=== PATIENT | female | born 2000 | race Caucasian/White ===

== ENCOUNTER 2019-11-27 12:24 | Outpatient (CLI) | payer MEDICAID, SELFPAY ==
[2019-11-27 12:36] VITALS: BP 135/79; PULSE 109; RESP 18
--- NOTE | 2019-11-27 12:47 | US_ITS ---
WS: [id number] ULTRASOUND OB LIMITED TECHNIQUE: Limited ultrasound examination of the fetus. CLINICAL INFORMATION: NO CARE, FINDINGS: Cervix measures 4.8 CM Single interuterine gestation. presentation is cephalic Placental location is posterior. Placenta grade: 2 heart rate 160 BPM. TAYLOR 10.7 cm Anatomy: BDP: 9.5 cm = 38w5d HC: 33.9 cm = 39w0d AC: 34.9 cm = 38w6d FEMUR LENGTH: 7.5 cm = 38w4d Estimated weight: 3591 g EGA by ultrasound: 38w6d JEREMIAH by ultrasound: 12/05/2019 Biophysical profile 8 out of 8. breathin movement: 2 tone: 2 Amniotic fluid: 2 IMPRESSION 1. Normal biophysical profile 8 out of 8 2. Estimated gestational age 38 weeks 6 days with estimated delivery December 05, 2019 3. Cervix measures 4.8 cm
[2019-11-27 13:40] VITALS: BP 135/79; PULSE 109; RESP 18
== END 2019-11-27 12:40 | disposition home or self-care (01) ==
LOC: OPOB 12:36 → OBGYN 13:42
PROVIDERS: Family Provider Family Medicine; PCP Family Medicine; Visit Provider Obstetrics & Gynecology
DX: O09.30 Supervision of pregnancy with insufficient antenatal care, unspecified trimester (principal); Z3A.00 Weeks of gestation of pregnancy not specified
CPT/HCPCS: 59025; 76815; 76819; 80053; 80307; 84315; 85027; 86592; 86762; 86803; 86850; 86900; 87081; 87340; 87491; 87591; 87661; 99211

== ENCOUNTER 2019-12-01 21:28 | Outpatient (CLI) | payer MEDICAID, SELFPAY ==
[2019-12-01] VITALS (10 sets, daily range): BP systolic 0–140; BP diastolic 0–81; PULSE 101–114; RESP 16; TEMP 36.9–37; BMI 38.9
== END 2019-12-01 22:55 | disposition home or self-care (01) ==
LOC: OPOB 21:30 → OBGYN 21:32
PROVIDERS: Family Provider Family Medicine; PCP Family Medicine; Visit Provider Obstetrics & Gynecology
DX: O26.899 Other specified pregnancy related conditions, unspecified trimester (principal); Z3A.00 Weeks of gestation of pregnancy not specified
CPT/HCPCS: 59025; 99211

== ENCOUNTER 2019-12-11 06:14 | Inpatient (IN) | payer MEDICAID, SELFPAY ==
[2019-12-11] VITALS (90 sets, daily range): BP systolic 0–221; BP diastolic 0–120; PULSE 67–141; RESP 12–18; TEMP 36.7–37.5; O2SAT 98–100; BMI 40.0
[2019-12-11] MEDS: promethazine 25 mg/mL SDV 1 mL IM (05:11)
--- NOTE | 2019-12-11 05:35 | PC.NURSE ---
at nurses station, rubi reviewed, updated on SVE and phenergan given for nausea at 0511.
[2019-12-11] MEDS: lactated ringers 1,000 ML 999 ML IV ×2 (06:45→08:29)
[2019-12-11 06:53] LABS: Basophils % 0.3 %; Hemoglobin 9.5 g/dL (11.5-15.3); Lymphocytes # 2.1 10^3/uL (1.5-6.5); Lymphocytes % 16.2 %; Mean Corpuscular HGB Conc 29.7 g/dL (30.0-36.0); Mean Corpuscular Hemoglobin 24.3 pg (28.0-34.0); Mean Corpuscular Volume 81.8 fL (81-99); Mean Platelet Volume 9.9 fL (7.4-10.4); Monocytes # 0.5 10^3/uL (0.2-0.9); Monocytes % 4.2 %; Neutrophils # 10.17 10^3/uL (1.8-8.0); Neutrophils % 78.5 %; Nucleated Red Blood Cells % 0 %; Platelet Count 292 10^3/cmm (130-400); Red Blood Count 3.91 10^6/uL (4.1-5.3); Red Cell Distribution Width 20.1 % (12.1-15.1); White Blood Count 12.9 10^3/uL (4.5-13.0)
[2019-12-11] MEDS: ondansetron 2 mg/ML SDV 2 mL 4 MG IVP (07:10)
[2019-12-11] MEDS: dextrose 5%-lactated ringers 1,000 ML 125 ML IV ×2 (08:30→14:24)
[2019-12-11] MEDS: oxytocin 30 UNIT/500 ML BAG 600 UNIT IV (08:31)
--- NOTE | 2019-12-11 09:17 | ANES.PREANE2 ---
Pre-Anesthetic Assessment Pre-Anesthetic Assessment: Height/Weight: Height 1.6 m Weight 102.512 kg Temp Pulse Resp BP Pulse Ox 98.6 F 126 H 18 100/53 99 12/11/19 08:30 12/11/19 09:15 12/11/19 07:30 12/11/19 09:15 12/11/19 08:23 Was Beta Sd taken within 24 hours: N/A Social: Social History: No alcohol and No tobacco Exam: Pre-Anes Outpt Exam: alert and oriented x 3 History/ROS: No significant complaints Pulmonary: Pulmonary: None reported CV/HEM: CV/HEM: None reported : : None reported Hepatic: Hepatic: None reported GI: GI: None reported Metabolic: Metabolic: None reported Musc/skel: Musc/skel: None reported Neuropsych: Neuropsych: None reported Anesthetic Plan: ASA status: 2 Anesthesia: Regional (specify below) Other: Labor Epidural Meds/Allergies Current Medications: Current Medications Generic Name Dose Route Start Last Admin Trade Name Freq PRN Reason Stop Dose Admin Dextrose/Lactated Ringer's 1,000 mls @ 125 m ls/hr 12/11/19 06:11 12/11/19 08:30 Dextrose 5%-Lact ated Ringers IV 125 mls/hr .Q8H PRN Administration LABOR INDUCTION Oxytocin 30 unit in 500 ml s @ 600 mls/hr 12/11/19 06:11 12/11/19 08:31 Pitocin IV 600 mls/hr .Q50M PRN 600 mls/hr After delivery of Administration Protocol Ropivacaine 200 mg in 100 mls @ 13 mls/hr 12/11/19 06:13 12/11/19 08:30 Naropin Premix EPIDURAL 13 mls/hr .Q7H42M PRN Administration ANESTHESIA Ondansetron HCl 4 mg 12/11/19 06:11 12/11/19 07:10 Zofran IVP 4 mg Q4H PRN Administration NAUSEA AND VOMITI NG PFSH Anesthesia PFSH: Medical History (Updated 12/07/19 @ 19:17 by Jose Aguilar MD) No pertinent past medical history neg hx:htn,dm,thyroid,dvt/pe Obesity Surgical History History of tonsillectomy and adenoidectomy (~2013) Family History Mother Hypertension Diabetes Family/Other Diabetes Paternal aunt Heart disease Paternal great uncle Family history of thyroid problem Maternal aunt Social History Additional social history: - Tobacco use: former smoker; Smoked for approx 1 year at age 14. Alcohol use: Denies Drug use: Denies Female Reproductive History: : 2 Data Anesthesia CBC & Chem 7: 12/11/19 06:20 Other Labs: Laboratory Results - last 48 hr 12/11/19 06:20 WBC 12.9 RBC 3.91 L Hgb 9.5 L Hct 32.0 L MCV 81.8 MCH 24.3 L MCHC 29.7 L RDW 20.1 H Plt Count 292 MPV 9.9 Neut % (Auto) 78.5 Lymph % (Auto) 16.2 [place] % (Auto) 4.2 Eos % (Auto) 0.0 Baso % (Auto) 0.3 Neut # (Auto) 10.17 H Lymph # (Auto) 2.1 [place] # (Auto) 0.5 Eos # (Auto) 0.0 Baso # (Auto) 0.0 Nucleated RBC % (auto) 0 Nucleated RBCs # 0.0 Cardiac Studies: No Data to Display
--- NOTE | 2019-12-11 09:18 | ANES.PREANE2 ---
Pre-Anesthetic Assessment Pre-Anesthetic Assessment: Height/Weight: Height 1.6 m Weight 102.512 kg Temp Pulse Resp BP Pulse Ox 98.6 F 126 H 18 100/53 99 12/11/19 08:30 12/11/19 09:15 12/11/19 07:30 12/11/19 09:15 12/11/19 08:23 Meds/Allergies Current Medications: Current Medications Generic Name Dose Route Start Last Admin Trade Name Freq PRN Reason Stop Dose Admin Dextrose/Lactated Ringer's 1,000 mls @ 125 m ls/hr 12/11/19 06:11 12/11/19 08:30 Dextrose 5%-Lact ated Ringers IV 125 mls/hr .Q8H PRN Administration LABOR INDUCTION Oxytocin 30 unit in 500 ml s @ 600 mls/hr 12/11/19 06:11 12/11/19 08:31 Pitocin IV 600 mls/hr .Q50M PRN 600 mls/hr After delivery of Administration Protocol Ropivacaine 200 mg in 100 mls @ 13 mls/hr 12/11/19 06:13 12/11/19 08:30 Naropin Premix EPIDURAL 13 mls/hr .Q7H42M PRN Administration ANESTHESIA Ondansetron HCl 4 mg 12/11/19 06:11 12/11/19 07:10 Zofran IVP 4 mg Q4H PRN Administration NAUSEA AND VOMITI NG PFSH Anesthesia PFSH: Medical History (Updated 12/07/19 @ 19:17 by Jose Aguilar MD) No pertinent past medical history neg hx:htn,dm,thyroid,dvt/pe Obesity Surgical History History of tonsillectomy and adenoidectomy (~2013) Family History Mother Hypertension Diabetes Family/Other Diabetes Paternal aunt Heart disease Paternal great uncle Family history of thyroid problem Maternal aunt Social History Additional social history: - Tobacco use: former smoker; Smoked for approx 1 year at age 14. Alcohol use: Denies Drug use: Denies Female Reproductive History: : 2 Data Anesthesia CBC & Chem 7: 12/11/19 06:20 Other Labs: Laboratory Results - last 48 hr 12/11/19 06:20 WBC 12.9 RBC 3.91 L Hgb 9.5 L Hct 32.0 L MCV 81.8 MCH 24.3 L MCHC 29.7 L RDW 20.1 H Plt Count 292 MPV 9.9 Neut % (Auto) 78.5 Lymph % (Auto) 16.2 [place] % (Auto) 4.2 Eos % (Auto) 0.0 Baso % (Auto) 0.3 Neut # (Auto) 10.17 H Lymph # (Auto) 2.1 [place] # (Auto) 0.5 Eos # (Auto) 0.0 Baso # (Auto) 0.0 Nucleated RBC % (auto) 0 Nucleated RBCs # 0.0 Cardiac Studies: No Data to Display Anesthesia Procedures Epidural: Time Out Performed: Yes Consents Signed: Procedure Consent Consent: requested by attending/covering physician, risks and benefits reviewed and patient agrees to proceed Lumbar Level: L4-L5 Epidural position: sitting Epidural procedure: sterile prep of area, 1% lidocaine to numb the area, negative for paresthesia passed, neg for paresthesia, 1.5% xylocaine 1:200k epi, no systemic response, sterile dressing applied and 0.2% Ropiavacaine @ mls/hr
--- NOTE | 2019-12-11 09:21 | P.ANESASSM_ITS ---
Pre-Anesthetic Assessment Pre-Anesthetic Assessment: Height/Weight: Height 1.6 m Weight 102.512 kg Temp Pulse Resp BP Pulse Ox 98.6 F 126 H 18 100/53 99 12/11/19 08:30 12/11/19 09:15 12/11/19 07:30 12/11/19 09:15 12/11/19 08:23 Meds/Allergies Current Medications: Current Medications Generic Name Dose Route Start Last Admin Trade Name Freq PRN Reason Stop Dose Admin Dextrose/Lactated Ringer's 1,000 mls @ 125 m ls/hr 12/11/19 06:11 12/11/19 08:30 Dextrose 5%-Lact ated Ringers IV 125 mls/hr .Q8H PRN Administration LABOR INDUCTION Oxytocin 30 unit in 500 ml s @ 600 mls/hr 12/11/19 06:11 12/11/19 08:31 Pitocin IV 600 mls/hr .Q50M PRN 600 mls/hr After delivery of Administration Protocol Ropivacaine 200 mg in 100 mls @ 13 mls/hr 12/11/19 06:13 12/11/19 08:30 Naropin Premix EPIDURAL 13 mls/hr .Q7H42M PRN Administration ANESTHESIA Ondansetron HCl 4 mg 12/11/19 06:11 12/11/19 07:10 Zofran IVP 4 mg Q4H PRN Administration NAUSEA AND VOMITI NG PFSH Anesthesia PFSH: Medical History (Updated 12/07/19 @ 19:17 by Jose Aguilar MD) No pertinent past medical history neg hx:htn,dm,thyroid,dvt/pe Obesity Surgical History History of tonsillectomy and adenoidectomy (~2013) Family History Mother Hypertension Diabetes Family/Other Diabetes Paternal aunt Heart disease Paternal great uncle Family history of thyroid problem Maternal aunt Social History Additional social history: - Tobacco use: former smoker; Smoked for approx 1 year at age 14. Alcohol use: Denies Drug use: Denies Female Reproductive History: : 2 Data Anesthesia CBC & Chem 7: 12/11/19 06:20 Other Labs: Laboratory Results - last 48 hr 12/11/19 06:20 WBC 12.9 RBC 3.91 L Hgb 9.5 L Hct 32.0 L MCV 81.8 MCH 24.3 L MCHC 29.7 L RDW 20.1 H Plt Count 292 MPV 9.9 Neut % (Auto) 78.5 Lymph % (Auto) 16.2 [place] % (Auto) 4.2 Eos % (Auto) 0.0 Baso % (Auto) 0.3 Neut # (Auto) 10.17 H Lymph # (Auto) 2.1 [place] # (Auto) 0.5 Eos # (Auto) 0.0 Baso # (Auto) 0.0 Nucleated RBC % (auto) 0 Nucleated RBCs # 0.0 Cardiac Studies: No Data to Display
--- NOTE | 2019-12-11 09:22 | ANES.PROC ---
Anesthesia Procedures Procedure/Date: 12/11/19 Epidural: Time Out Performed: Yes Consents Signed: Procedure Consent Consent: requested by attending/covering physician, risks and benefits reviewed and patient agrees to proceed Lumbar Level: L4-L5 Epidural position: sitting Epidural procedure: sterile prep of area, 1% lidocaine to numb the area, negative for paresthesia passed, 1.5% xylocaine 1:200k epi and sterile dressing applied Additional Comments: Room Time: 08:00AM, Test Dose: 08:11AM
--- NOTE | 2019-12-11 14:10 | PC.NURSE ---
1300 FHTS DOWN IN 90-100, PT PUSHING, O2 PLACED ON AT 10 L AND THIS TECHNICAL WRITING LEAD/MGR FELT LIKE BABY IS OP, ASKED DR. GORDON IF HE COULD COME ASSESS SITUATION. 1303 DR. GORDON IN ROOM AND VE DONE 1308 DR. GORDON ATTEMPTED TO MANUALLY ROTATE BABY, PT'S CONTRACTIONS NOT VERY STRONG OR OFTEN. 1315 BABY REMAINS OP AND HIGH SO WE PUSHED A COUPLE TIMES AND THEN I ASKED MACARENA TO ASK DR. GORDON IF WE COULD START PITOCIN AND LET HER LABOR DOWN FOR AWHILE. 1320 DR. GORDON CAME BACK INTO ROOM AND ORDERS RECEIVED TO START PITOCIN AND LET HER LABOR DOWN FOR AWHILE. 1323 PITOCIN STARTED AT 4MLS AND BED BACK TOGETHER AND PEANUT BALL PLACED AND PT TILED TO RIGHT SIDE. 1340 CONTRACTION TOCO CHANGED OUT, WAS NOT GRAPHING CONTRACTIONS WELL AT ALL.
--- NOTE | 2019-12-11 15:52 | PM.DELIVERY ---
Delivery Note: Date of delivery: December 11, 2019 Pre-delivery diagnoses: 1. at 40-6/7 weeks gestation. 2. Limited care, starting at 38 weeks 3. Anemia in in third trimester Post-delivery diagnoses: 1. Term at 40-6/7 weeks gestation - delivered. 2. Limited care - delivered 3. Anemia and - delivered 4. Viable male infant Procedure: Spontaneous vaginal delivery Op report anesthesia: Epidural Delivering Physician: Dr. Jose Aguilar Estimated blood loss (mL): 150 Pre-Delivery Course: Patient is a 19-year-old white female, 2, para 1-0-0-1 with an unknown LMP and an EDC of 12/05/2019 based on a 38-week ultrasound, which places her at 40-6/7 weeks gestation at admission. She presented to labor and delivery at 02:49 on 12/11/2019 with a complaint of contractions. On initial evaluation she was 4 to 5 cm dilated and 80% effaced. She was watched over the next couple hours and made cervical change. As a result she was admitted to the hospital. She became more uncomfortable and had epidural placed early this morning. She had artificial rupture of membranes at 09:55 with clear fluid present. She was 90% effaced and 8 cm dilated and shrunk to 80% effaced and 7 cm dilation after rupture. She continued to progress and was found to be completely dilated by 12:50. Pushing was started, but she was too numb to push adequately and contractions were very weak. As a result, Pitocin was started and epidural was turned down. Delivery: At 14:45 she started pushing and delivered at 15:20 as a spontaneous vaginal delivery of a left occiput anterior presentation male infant over intact perineum under epidural anesthesia. Following delivery of the infant's head, one loop of nuchal cord was noted. The baby delivered through the loop of cord with the right shoulder anterior. Baby was placed on the mother's abdomen. Cord was clamped and then cut by the father the baby. The baby was left in the care of the waiting nurses. Baby's was spontaneously crying. Cord blood was obtained. Pitocin bolus was started. Placenta delivered intact by simple expression at 15:23. The cervix and vagina were palpated and noted to be intact. The labia were inspected and noted to be intact except for a second-degree midline perineal laceration. This was repaired with 3-0 Vicryl suture. FINDINGS 1. Viable male weighing 8 lbs 12 oz (3975 g) with a length of 20-1/2 inches and Apgars of 8 at 1 minute and 9 at 5 minutes. 2. Three-vessel cord with one loop of nuchal cord noted. 3. Normal-appearing placenta with an eccentric cord insertion. Post-Delivery Status: Mother and infant were left to recover in satisfactory condition. A&P Assessment and plan (1) Term delivered: Status: Acute (2) Anemia during , delivered, current hospitalization: Status: Acute Coding Level of Care Code Acute Veneer Taper for Chg Fwd Diagnoses Term delivered O80 Anemia during , delivered, current hospitalization O99.02
--- NOTE | 2019-12-11 17:20 | PC.NURSE ---
Pts. room is extremely hot and air is not working well. Pt. denies any body aches.
--- NOTE | 2019-12-11 17:24 | PC.NURSE ---
HOTLINE CALL MADE DUE TO LACK OF CARE ONLY SAW DR. GORDON ONCE ON NOVEMBER 28 2019 FROM WHAT I UNDERSTAND. BOTH PARENTS ARE VERY ATTENTIVE AND APPROPRIATE.
--- NOTE | 2019-12-11 18:22 | PC.PHAR ---
THIS PETROPHYSICIST WAS NOT ABLE TO PUT IN INCREASES OF PITOCIN AUGMENTATION INFUSION PRIOR TO DR. GORDON DISCONTINUING IT. HERBIE MOSCOSO RN WITNESSED THIS PETROPHYSICIST INCREASING MEDICATION WE WERE PUSHING WITH PT PER DR. GORDON'S ORDERS. 1415 INCREASES TO 8MLS 1430 INCREASED TO 10MLS 1445 INCREASED TO 12 MLS 1500 INCREASED TO 14 MLS 1514 INCREASED TO 16 MLS.
--- NOTE | 2019-12-11 20:31 | PC.NURSE ---
Patient ambulated from L&D room to PP room; tolerates activity well. SKYLER FERRO
[2019-12-12 05:10] VITALS: BP 124/85; PULSE 97; RESP 16; TEMP 36.6
[2019-12-12 06:11] LABS: Hematocrit 28.3 % (37.0-47.0); Hemoglobin 8.5 g/dL (11.5-15.3); Mean Corpuscular Volume 83.2 fL (81-99); Platelet Count 239 10^3/cmm (130-400); Red Cell Distribution Width 20.1 % (12.1-15.1); White Blood Count 15.4 10^3/uL (4.5-13.0)
[2019-12-12] MEDS: prenatal vitamin Capsule 1 CAP PO (08:19)
[2019-12-12] MEDS: docusate sodium 100 mg Capsule PO (08:19)
[2019-12-12 10:15] VITALS: BP 123/77; PULSE 84; RESP 18; TEMP 36.5; O2SAT 99
--- NOTE | 2019-12-12 13:19 | PM.OBGYDC ---
Discharge Providers TRAVEL ADMINISTRATOR Date of Admission: 12/11/19 06:14 Date of Discharge: 12/12/19 Attending Provider at Admission: Jose Aguilar MD Attending Provider at Discharge: Jose Aguilar MD Primary Care Provider: Juan Barajas DO Diagnoses at Discharge Discharge Diagnosis (1) Term delivered: Status: Acute (2) Anemia during , delivered, current hospitalization: Status: Acute Reason for Visit Reason for Visit: contractions Information Peripartum Data: Infant Delivery Method: Vaginal Physical Exam Const: COMMON NORMALS: no acute distress, average body habitus, alert and well nourished GENERAL APPEARANCE: well developed ORIENTATION/CONSCIOUSNESS: Yes oriented to person, Yes oriented to place and Yes oriented to time Resp: COMMON NORMALS: normal respiratory effort and clear to auscultation bilaterally AUSCULTATION: clear to auscultation bilaterally Cardio: COMMON NORMALS: regular rate, regular rhythm, No gallops present (Cardio) and No rub (Cardio) RATE: regular rate RHYTHM: regular rhythm GI: COMMON NORMALS: Soft to palpation, non-tender, No hepatosplenomegaly present and no masses (Except for nontender uterus, approximately 2 fingerbreadths below the umbilicus.) AUSCULTATION: Yes normoactive bowel sounds PALPATION: Yes Soft to palpation, Yes No hepatosplenomegaly present and No Hernia present : EXTERNAL FEMALE EXAM: No Hernia present Extremity: COMMON NORMALS: no calf tenderness GENERAL: Yes edema (Trace to 1+ lower extremity edema) Neuro: SENSORIUM/ORIENTATION: Yes alert, Yes oriented to person, Yes oriented to place and Yes oriented to time Psych: COMMON NORMALS: normal affect MOOD & AFFECT: Yes euthymic mood Discharge Data Data Completed and Pending: Labs from last 24 hours 12/12/19 06:00 WBC 15.4 H RBC 3.40 L Hgb 8.5 L Hct 28.3 L MCV 83.2 MCH 25.0 L MCHC 30.0 RDW 20.1 H Plt Count 239 MPV 10.0 Vitals: Last Vital Signs Temp 97.7 F 12/12/19 10:15 Pulse 84 12/12/19 10:15 Resp 18 12/12/19 10:15 BP 123/77 12/12/19 10:15 Pulse Ox 99 12/12/19 10:15 Discharge Plan Discharge Patient Disposition: Home, Self-Care Condition: Stable Prescriptions: Continued prenat.vits,pako,eyq-elus-celak Tablet 1 tab PO DAILY RF: 0 Changed ferrous sulfate 325 mg (65 mg iron) tablet,delayed release (DR/EC) 325 mg PO BID Qty: 0 RF: 0 Discharge Orders: Discharge Order (Routine); Ordered 12/12/19 Ordered By: Jose Aguilar Referrals: Jose Aguilar MD [Physician] - 01/23/20 10:00 am (Your 6 week appointment has been scheduled for 01/23/20 at 10:[address] [facility]ilar at [facility] Discharge Diet: Regular Discharge Activity: Resume usual activity Patient Instructions: Vitamins (By mouth), OB Discharge Report, OB Food/Drug Interaction Guide, OB Proud Parent Packet, OB Vaginal Deliveries Discharge Attestations TRAVEL ADMINISTRATOR Time Spent in Discharge Care*: less than 30 min Coding Level of Care Code Acute Chemical Etch Operator for Chg Fwd Diagnoses Term delivered O80 Anemia during , delivered, current hospitalization O99.02
[2019-12-12 16:37] VITALS: BP 123/82; PULSE 74; RESP 16; TEMP 36.6; O2SAT 100
[2019-12-12] MEDS: measles,mumps,rubella pf Vial (w/diluent) 0.5 ML SUBCUT (18:20)
[2019-12-12 18:26] VITALS: BP 115/77; PULSE 78; RESP 16; TEMP 36.7; O2SAT 99
== END 2019-12-12 18:42 | disposition home or self-care (01) | DRG 807 ==
LOC: OBGYN 08:52 → OPOB 08:52
PROVIDERS: Admitting Provider Obstetrics & Gynecology; Family Provider Family Medicine; PCP Family Medicine; Visit Provider Obstetrics & Gynecology
DX: O99.02 Anemia complicating childbirth (principal); Z37.0 Single live birth; Z3A.40 40 weeks gestation of pregnancy; O70.1 Second degree perineal laceration during delivery; D64.9 Anemia, unspecified; O69.81X0 Labor and delivery complicated by cord around neck, without compression, not applicable or unspecified
CPT/HCPCS: 12345; 36415; 51702; 59025; 59409; 85025; 85027; 90707; 96372; 96375; 99211; J2405; J2550; J2795

== ENCOUNTER 2020-02-23 22:42 | Observation (INO) | payer MEDICAID, SELFPAY ==
[2020-02-23 23:00] VITALS: BP 123/80; PULSE 100; RESP 16; TEMP 36.7; O2SAT 100; BMI 37.8
--- NOTE | 2020-02-23 23:20 | XR_ITS ---
WS: [id number] PORTABLE CHEST HISTORY: Chest pain COMPARISON: 03/19/2006 Focal area of increased soft tissue centered over the LEFT hilum extending into the LEFT upper lobe. No pleural effusion or pneumothorax. Cardiac size: Normal. Mediastinum/Aorta: No mediastinal widening other than the LEFT hilar mass. No osseous abnormality seen. XR/XR chest 1V portable [id number] IMPRESSION: LEFT hilar/LEFT upper lobe opacification suspicious for mass. Please see CT ang iogram report performed on the same day.
--- NOTE | 2020-02-23 23:20 | ECG_ITS ---
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 Measurements Intervals [place] Rate: 94 P: 39 NC: 202 QRS: 65 QRSD: 89 T: 40 QT: 348 QTc: 437 Interpretive Statements SINUS RHYTHM NONSPECIFIC T-WAVE ABNORMALITY No previous ECG available for comparison Electronically Signed On 02-24-2020 17:56:51 CDT by Blake Clemons M.D. [email or web address]
--- NOTE | 2020-02-23 23:29 | ED_ITS ---
Documented by User: MARY Dang 02/24/20 03:08 HPI - Extremity Problem General: Chief complaint: Extremity Injury, Upper Stated complaint: chest pains/ has chf Time Seen by Provider: 02/23/20 23:29 History of Present Illness: HPI Narrative: Patient is a 19-year-old female comes to the ED with chest pain. Patient is and delivered a baby back on December 10. Patient says that yesterday and having pain from her left benjamin ulder blade that moved to her armpit and then into left side of chest. Chest pain started when patient was sitting and at rest. She denies any past episodes of chest pain and denies any cardiac problems as a child. She currently rates her chest pain 5 out of 10. Patient says pain gets worse when she takes a deep breath. She has not taken any medications before coming to ED to help with chest pain. Denies fever, chills, shortness of breath, nausea/vomiting, abdominal pain, bladder or bowel symptoms. Associated symptoms: Reports chest pain; Deny fever(s) or rash Review of Systems Const: Denies: fever(s), chills or fatigue Eyes: Denies: change in vision or eye discomfort ENMT: Denies: throat pain, odynophagia, nasal discharge or nasal congestion Card: Reports: chest pain; Denies: palpitations, edema, swelling of feet/ankles, dyspnea on exertion or orthopnea Resp: Denies: dyspnea, productive cough or non-productive cough GI: Denies: abdominal pain, nausea, vomiting, diarrhea, constipation or hematochezia : Denies: flank pain, dysuria or hematuria Musc: Reports: back pain (Pain in left shoulder blade and has since migrated to left side of chest.); Denies: neck pain or extremity swelling Skin/Breast: Denies: rash or new lesions Neuro: Denies: headache(s), numbness in extremities or weakness in extremities [facility] PFSH: Medical History Blood type B- Obesity Surgical History History of tonsillectomy and adenoidectomy (~2013) Family History Mother Hypertension Diabetes Family/Other Diabetes Paternal aunt Heart disease Paternal great uncle Family history of thyroid problem Maternal aunt Social History Smoking and tobacco status: former smoker Quit status (tobacco): has quit using tobacco Year quit tobacco: 2016 Former quit date comment: Smoked for 1 year at age 14 Alcohol intake: never Additional social history: - Tobacco use: former smoker; Smoked for approx 1 year at age 14. Alcohol use: Denies Drug use: Denies Physical Exam Const: COMMON NORMALS: no acute distress, patient oriented x3 and alert GENERAL APPEARANCE: cooperative and comfortable HENMT: COMMON NORMALS: normocephalic HEAD & SCALP: normocephalic MOUTH: Normal oral and palatal mucosa present THROAT: posterior oropharynx normal and uvula midline Neck/C-Spine: COMMON NORMALS: supple GENERAL: Yes normal visual inspection Chest: COMMONS NORMALS: normal palpation of entire chest wall Resp: COMMON NORMALS: normal respiratory effort, No retractions, No use of accessory muscles and clear to auscultation bilaterally AUSCULTATION: clear to auscultation bilaterally Cardio: COMMON NORMALS: regular rate, regular rhythm, S1 normal heart sound present, S2 normal heart sound present, No gallops present (Cardio), No clicks present (Cardio), No murmurs present (Cardio) and Peripheral pulses 2+ throughout RATE: regular rate RHYTHM: regular rhythm HEART SOUNDS: S1 normal heart sound present and S2 normal heart sound present PERIPHERAL PULSES: Peripheral pulses 2+ throughout GI: COMMON NORMALS: Normal to inspection, nondistended, normoactive bowel sounds present, Soft to palpation, non-tender and no masses PALPATION: Yes Soft to palpation : COMMON NORMALS: Yes no CVA tenderness BLADDER/KIDNEY EXAM: Yes no CVA tenderness Back/Pelvis: COMMON NORMALS: no CVA tenderness Extremity: COMMON NORMALS: normal to inspection and no pedal edema Neuro: COMMON NORMALS: patient oriented x3 and moves all extremities SENSORIUM/ORIENTATION: Yes alert Skin: GENERAL SKIN EXAM: dry skin Course Vital Signs: Vital signs: Vital Signs Temperature 98.0 F 02/23/20 23:00 Pulse Rate 110 H 02/24/20 02:16 Respiratory Rate 20 H 02/24/20 02:16 Blood Pressure 110/70 02/24/20 02:16 Pulse Oximetry 100 02/24/20 02:16 MDM - Extremity (Nontraumatic) Lab Data: Attestation: I reviewed the patient's lab results. Labs: Lab Results 02/24/20 02/24/20 02/24/20 Range/Units 00:03 00:03 00:03 WBC (4.5-13.0) 10^3/ uL RBC (4.1-5.3) 10^6/u L Hgb (11.5-15.3) g/dL Hct (37.0-47.0) % MCV (81-99) fL MCH (28.0-34.0) pg MCHC (30.0-36.0) g/dL RDW (12.1-15.1) % Plt Count (130-400) 10^3/c mm MPV (7.4-10.4) fL Neut % (Auto) % Lymph % (Auto) % [place] % (Auto) % Eos % (Auto) % Baso % (Auto) % Neut # (Auto) (1.8-8.0) 10^3/u L Lymph # (Auto) (1.5-6.5) 10^3/u L [place] # (Auto) (0.2-0.9) 10^3/u L Eos # (Auto) (0.0-0.8) 10^3/u L Baso # (Auto) (0.0-0.1) 10^3/u L Nucleated RBC % (a uto) % Nucleated RBCs # /100WBC D-Dimer 2.02 H (0-0.59) ug/mIFE U Sodium 141 (136-145) mmol/L Potassium 4.2 (3.5-5.1) mmol/L Chloride 107 (98-107) mmol/L Carbon Dioxide 24 (22-29) mmol/L Anion Gap 14.2 (5-19) BUN 14 (6-20) mg/dL Creatinine 0.7 (0.5-0.9) mg/dL GFR Calculation 106.7 (90-130) mL/min Glucose 87 (65-115) mg/dL Calculated Osmolal ity 292 (285-295) mOsm/k g Calcium 10.0 (8.5-10.5) mg/dL Total Bilirubin 0.2 (0.15-1.2) mg/dL AST 18 (0-32) U/L ALT 18 (0-33) U/L Alkaline Phosphata se 84 (35-105) IU/L Creatine Kinase 60 (26-192) U/L Troponin T Baselin e 6 (0-10) ng/L Troponin T 120 Min emre (0-10) ng/L Delta Troponin T (0-10) ABS# NT-Pro-B Natriuret Pep 26 (0-125) pg/mL Total Protein 6.9 (6.6-8.7) g/dL Albumin 4.4 (3.5-5.2) g/dL Globulin 2.5 (1.3-4.6) g/dL 02/24/20 02/24/20 Range/Units 00:03 02:23 WBC 8.7 (4.5-13.0) 10^3/ uL RBC 4.59 (4.1-5.3) 10^6/u L Hgb 11.8 (11.5-15.3) g/dL Hct 39.2 (37.0-47.0) % MCV 85.4 (81-99) fL MCH 25.7 L (28.0-34.0) pg MCHC 30.1 (30.0-36.0) g/dL RDW 14.6 (12.1-15.1) % Plt Count 420 H (130-400) 10^3/c mm MPV 10.2 (7.4-10.4) fL Neut % (Auto) 57.8 % Lymph % (Auto) 34.8 % [place] % (Auto) 5.8 % Eos % (Auto) 0.7 % Baso % (Auto) 0.7 % Neut # (Auto) 5.03 (1.8-8.0) 10^3/u L Lymph # (Auto) 3.0 (1.5-6.5) 10^3/u L [place] # (Auto) 0.5 (0.2-0.9) 10^3/u L Eos # (Auto) 0.1 (0.0-0.8) 10^3/u L Baso # (Auto) 0.1 (0.0-0.1) 10^3/u L Nucleated RBC % (a uto) 0 % Nucleated RBCs # 0.0 /100WBC D-Dimer (0-0.59) ug/mIFE U Sodium (136-145) mmol/L Potassium (3.5-5.1) mmol/L Chloride (98-107) mmol/L Carbon Dioxide (22-29) mmol/L Anion Gap (5-19) BUN (6-20) mg/dL Creatinine (0.5-0.9) mg/dL GFR Calculation (90-130) mL/min Glucose (65-115) mg/dL Calculated Osmolal ity (285-295) mOsm/k g Calcium (8.5-10.5) mg/dL Total Bilirubin (0.15-1.2) mg/dL AST (0-32) U/L ALT (0-33) U/L Alkaline Phosphata se (35-105) IU/L Creatine Kinase (26-192) U/L Troponin T Baselin e (0-10) ng/L Troponin T 120 Min emre 6.00 (0-10) ng/L Delta Troponin T 0 (0-10) ABS# NT-Pro-B Natriuret Pep (0-125) pg/mL Total Protein (6.6-8.7) g/dL Albumin (3.5-5.2) g/dL Globulin (1.3-4.6) g/dL Imaging Data^: CT Chest: Attestation: I personally reviewed and interpreted this imaging study as follows: Radiologist's impression: [address] [address] [address] Scan Report Signed with Addenda Patient: Shanna Pearce Unit #: [id number] : 2000 Age/Sex: 19 / F ADM Date: 02/23/20 Loc: ER Room/Bed: Attending Dr: Ordering Provider/Ordering MD: Javi Figueroa Date of Service: 02/24/20 Procedure(s): CT angio chest PE protcl [id number] Accession Number(s): [id number] Report Number: [id number]/CT angio chest PE prot [id number] THIS REPORT CONTAINS FINDINGS THAT MAY BE CRITICAL TO PATIENT CARE. The findings were verbally communicated via telephone conference with Dr. Eason at 2:34 AM CDT on 02/24/2020. The findings were acknowledged and understood. Radiation Dose CTDIVOL = (mGy): DLP = 1224.23 (mGy-cm) Addendum Dictated By: Eduard Vital MD Addendum Signed By: Eduard Vital MD Signed Date/Time: 0236 Addendum Cosigned By: PROCEDURE INFORMATION: Exam: CT Angiography Chest With Contrast Exam date and time: 02/24/2020 1:30 AM Age: 19 years old Clinical indication: Abnormal findings; Abnormal diagnostic tests; Elevated d-dimer; Additional info: Cp with elevated d dimer TECHNIQUE: Imaging protocol: Computed tomographic angiography of the chest with intravenous contrast. 3D rendering (Not supervised by radiologist): MIP and/or 3D reconstructed images were created by the technologist. Radiation optimization: All CT scans at this facility use at least one of these dose optimization techniques: automated exposure control; mA and/or kV adjustment per patient size (includes targeted exams where dose is matched to clinical indication); or iterative reconstruction. Contrast material: OMNI 350; Contrast volume: 95 ml; Contrast route: INTRAVENOUS (IV); COMPARISON: CR XR chest 1V portable [id number] 02/24/2020 12:00 AM RADIATION DOSE METRICS: Total DLP (mGy-cm): 1224.23 FINDINGS: Pulmonary arteries: The pulmonary arteries are adequately opacified for evaluation to the subsegmental level. There is no filling defect to suggest embolism. Aorta: The thoracic aorta is normal. There is no aneurysm or dissection. Lungs: There is an irregular 17 x 14 mm subpleural nodule in the lingula. There is ill-defined ground-glass opacity in the left upper lobe adjacent to the hilum. The right lung is clear. Pleural space: Unremarkable. No pneumothorax. No pleural effusion. Heart: The heart is unremarkable. There is no pericardial effusion. Lymph nodes: There is a left hilar mass encasing the bronchi and narrowing the anterior segmental left upper lobe pulmonary artery. The mass measures 4.5 x 3.2 cm axial dimension and 4.2 cm craniocaudal dimension. There is no mediastinal or hilar lymphadenopathy on the right. Adrenals: The adrenal glands are normal. Kidneys and ureters: There is mild right hydronephrosis, incompletely imaged. Bones/joints: Bones are unremarkable. Soft tissues: The extrathoracic soft tissues are unremarkable. CT/CT angio chest PE protcl [id number] IMPRESSION: 1. No pulmonary embolism. 2. 4.5 cm left hilar mass and 17 mm lingular pulmonary nodule. Findings are suspicious for malignant neoplasm. Differential diagnosis includes fungal infection. Highly suspicious nodule(s). Consider PET/CT, or tissue sampling.(Reference: Javier) 3. Right hydronephrosis. Consider further evaluation with renal ultrasound or abdomen CT. REFERENCES: Javier Hilario, et al. Guidelines for Management of Incidental Pulmonary Nodules Detected on CT Images: From the Fleischner Society 2017. Radiology. 2017;284(1):228-243. Radiation Dose CTDIVOL = (mGy): DLP = 1224.23 (mGy-cm) Dictated By: Eduard Vital MD Signed By: Eduard Vital MD Signed Date/Time: 02/24/20234 DD/ 3 EKG Data^: EKG 1: Attestation: I personally reviewed and interpreted this EKG as follows: EKG interpretation date: 02/24/20 Interpretation: Sinus rhythm, 94 bpm, no ST segment elevation or depression seen. Patient has an S wave in lead I, Q wave in lead III and T wave is flattened in lead III as well. Discharge Plan Discharge Prescriptions: No Action prenat.vits,pako,[id number] Tablet 1 tab PO DAILY RF: 0 ferrous sulfate 325 mg (65 mg iron) tablet,delayed release (DR/EC) 325 mg PO BID Qty: 0 RF: 0 Coding Level of Care Code ED Squeak Rattle And Leak Repairer for Chg Fwd Exam Comprehensive Documented by User: Victor Hugo Eason DO 02/24/20 03:22 HPI - Extremity Problem General: Chief complaint: Extremity Injury, Upper Stated complaint: chest pains/ has chf Time Seen by Provider: 02/23/20 23:29 PFSH ED PFSH: Medical History Blood type B- Obesity Surgical History History of tonsillectomy and adenoidectomy (~2013) Family History Mother Hypertension Diabetes Family/Other Diabetes Paternal aunt Heart disease Paternal great uncle Family history of thyroid problem Maternal aunt Social History Smoking and tobacco status: former smoker Quit status (tobacco): has quit using tobacco Year quit tobacco: 2015 Former quit date comment: Smoked for 1 year at age 14 Alcohol intake: never Additional social history: - Tobacco use: former smoker; Smoked for approx 1 year at age 14. Alcohol use: Denies Drug use: Denies Course Consultations: Consultation #1: [email or web address] Vital Signs: Vital signs: Vital Signs Temperature 98.0 F 02/23/20 23:00 Pulse Rate 110 H 02/24/20 02:16 Respiratory Rate 20 H 02/24/20 02:16 Blood Pressure 110/70 02/24/20 02:16 Pulse Oximetry 100 02/24/20 02:16 MDM - Extremity (Nontraumatic) MDM Narrative: Medical decision making narrative: 19-year-old female recently seen by Mr. Carolina PA-C. I have seen the patient as well. I agree with his history, evaluation, and work-up. This young lady presented with a pleuritic type left upper chest pain. She was mildly tachycardic. She had S1, QT, and flattened T waves on her EKG. D-dimer was 2000. For these reasons, CTA was ordered. It shows a left upper lobe lung mass felt to likely be primary lung tumor, about fungal infection is also in the differential. She will be observed. Hospitalist agrees. Lab Data: Labs: Lab Results 02/24/20 02/24/20 02/24/20 Range/Units 00:03 00:03 00:03 WBC (4.5-13.0) 10^3/ uL RBC (4.1-5.3) 10^6/u L Hgb (11.5-15.3) g/dL Hct (37.0-47.0) % MCV (81-99) fL MCH (28.0-34.0) pg MCHC (30.0-36.0) g/dL RDW (12.1-15.1) % Plt Count (130-400) 10^3/c mm MPV (7.4-10.4) fL Neut % (Auto) % Lymph % (Auto) % [place] % (Auto) % Eos % (Auto) % Baso % (Auto) % Neut # (Auto) (1.8-8.0) 10^3/u L Lymph # (Auto) (1.5-6.5) 10^3/u L [place] # (Auto) (0.2-0.9) 10^3/u L Eos # (Auto) (0.0-0.8) 10^3/u L Baso # (Auto) (0.0-0.1) 10^3/u L Nucleated RBC % (a uto) % Nucleated RBCs # /100WBC D-Dimer 2.02 H (0-0.59) ug/mIFE U Sodium 141 (136-145) mmol/L Potassium 4.2 (3.5-5.1) mmol/L Chloride 107 (98-107) mmol/L Carbon Dioxide 24 (22-29) mmol/L Anion Gap 14.2 (5-19) BUN 14 (6-20) mg/dL Creatinine 0.7 (0.5-0.9) mg/dL GFR Calculation 106.7 (90-130) mL/min Glucose 87 (65-115) mg/dL Calculated Osmolal ity 292 (285-295) mOsm/k g Calcium 10.0 (8.5-10.5) mg/dL Total Bilirubin 0.2 (0.15-1.2) mg/dL AST 18 (0-32) U/L ALT 18 (0-33) U/L Alkaline Phosphata se 84 (35-105) IU/L Creatine Kinase 60 (26-192) U/L Troponin T Baselin e 6 (0-10) ng/L Troponin T 120 Min emre (0-10) ng/L Delta Troponin T (0-10) ABS# NT-Pro-B Natriuret Pep 26 (0-125) pg/mL Total Protein 6.9 (6.6-8.7) g/dL Albumin 4.4 (3.5-5.2) g/dL Globulin 2.5 (1.3-4.6) g/dL 02/24/20 02/24/20 Range/Units 00:03 02:23 WBC 8.7 (4.5-13.0) 10^3/ uL RBC 4.59 (4.1-5.3) 10^6/u L Hgb 11.8 (11.5-15.3) g/dL Hct 39.2 (37.0-47.0) % MCV 85.4 (81-99) fL MCH 25.7 L (28.0-34.0) pg MCHC 30.1 (30.0-36.0) g/dL RDW 14.6 (12.1-15.1) % Plt Count 420 H (130-400) 10^3/c mm MPV 10.2 (7.4-10.4) fL Neut % (Auto) 57.8 % Lymph % (Auto) 34.8 % [place] % (Auto) 5.8 % Eos % (Auto) 0.7 % Baso % (Auto) 0.7 % Neut # (Auto) 5.03 (1.8-8.0) 10^3/u L Lymph # (Auto) 3.0 (1.5-6.5) 10^3/u L [place] # (Auto) 0.5 (0.2-0.9) 10^3/u L Eos # (Auto) 0.1 (0.0-0.8) 10^3/u L Baso # (Auto) 0.1 (0.0-0.1) 10^3/u L Nucleated RBC % (a uto) 0 % Nucleated RBCs # 0.0 /100WBC D-Dimer (0-0.59) ug/mIFE U Sodium (136-145) mmol/L Potassium (3.5-5.1) mmol/L Chloride (98-107) mmol/L Carbon Dioxide (22-29) mmol/L Anion Gap (5-19) BUN (6-20) mg/dL Creatinine (0.5-0.9) mg/dL GFR Calculation (90-130) mL/min Glucose (65-115) mg/dL Calculated Osmolal ity (285-295) mOsm/k g Calcium (8.5-10.5) mg/dL Total Bilirubin (0.15-1.2) mg/dL AST (0-32) U/L ALT (0-33) U/L Alkaline Phosphata se (35-105) IU/L Creatine Kinase (26-192) U/L Troponin T Baselin e (0-10) ng/L Troponin T 120 Min emre 6.00 (0-10) ng/L Delta Troponin T 0 (0-10) ABS# NT-Pro-B Natriuret Pep (0-125) pg/mL Total Protein (6.6-8.7) g/dL Albumin (3.5-5.2) g/dL Globulin (1.3-4.6) g/dL Discharge Plan Discharge Prescriptions: No Action prenat.vits,pako,ahv-lllz-ivgeh Tablet 1 tab PO DAILY RF: 0 ferrous sulfate 325 mg (65 mg iron) tablet,delayed release (DR/EC) 325 mg PO BID Qty: 0 RF: 0 Coding Level of Care Code ED Squeak Rattle And Leak Repairer for Chg Fwd Exam Comprehensive
[2020-02-23 23:36] VITALS: BP 110/58; PULSE 84; RESP 18; O2SAT 100
[2020-02-24] VITALS (12 sets, daily range): BP systolic 106–137; BP diastolic 56–85; PULSE 74–110; RESP 16–20; TEMP 36.6–36.8; O2SAT 96–100
[2020-02-24 00:37] LABS: D Dimer 2.02 ug/mIFEU (0-0.59)
[2020-02-24 00:46] LABS: Troponin(5th) Baseline 6 ng/L (0-10)
[2020-02-24 00:55] LABS: Alanine Aminotransferase 18 U/L (0-33); Albumin Level 4.4 g/dL (3.5-5.2); Alkaline Phosphatase 84 IU/L (35-105); Anion Gap 14.2 (5-19); Aspartate Amino Transferase 18 U/L (0-32); Blood Urea Nitrogen 14 mg/dL (6-20); Carbon Dioxide 24 mmol/L (22-29); Chloride 107 mmol/L (98-107); Creatine Phosphokinase 60 U/L (26-192); Globulin 2.5 g/dL (1.3-4.6); Glomerular Filtration Rate 106.7 mL/min (90-130); Glucose 87 mg/dL (65-115); NT Pro B Type Natriuretic Pept 26 pg/mL (0-125); Osmolality Calculated 292 mOsm/kg (285-295); Potassium 4.2 mmol/L (3.5-5.1); Sodium 141 mmol/L (136-145); Total Bilirubin 0.2 mg/dL (0.15-1.2); Total Protein 6.9 g/dL (6.6-8.7)
--- NOTE | 2020-02-24 01:28 | CTR_ITS ---
PROCEDURE INFORMATION: Exam: CT Angiography Chest With Contrast Exam date and time: 02/24/2020 1:30 AM Age: 19 years old Clinical indication: Abnormal findings; Abnormal diagnostic tests; Elevated d-dimer; Additional info: Cp with elevated d dimer TECHNIQUE: Imaging protocol: Computed tomographic angiography of the chest with intravenous contrast. 3D rendering (Not supervised by radiologist): MIP and/or 3D reconstructed images were created by the technologist. Radiation optimization: All CT scans at this facility use at least one of these dose optimization techniques: automated exposure control; mA and/or kV adjustment per patient size (includes targeted exams where dose is matched to clinical indication); or iterative reconstruction. Contrast material: OMNI 350; Contrast volume: 95 ml; Contrast route: INTRAVENOUS (IV); COMPARISON: CR XR chest 1V portable [id number] 02/24/2020 12:00 AM RADIATION DOSE METRICS: Total DLP (mGy-cm): 1224.23 FINDINGS: Pulmonary arteries: The pulmonary arteries are adequately opacified for evaluation to the subsegmental level. There is no filling defect to suggest embolism. Aorta: The thoracic aorta is normal. There is no aneurysm or dissection. Lungs: There is an irregular 17 x 14 mm subpleural nodule in the lingula. There is ill-defined ground-glass opacity in the left upper lobe adjacent to the hilum. The right lung is clear. Pleural space: Unremarkable. No pneumothorax. No pleural effusion. Heart: The heart is unremarkable. There is no pericardial effusion. Lymph nodes: There is a left hilar mass encasing the bronchi and narrowing the anterior segmental left upper lobe pulmonary artery. The mass measures 4.5 x 3.2 cm axial dimension and 4.2 cm craniocaudal dimension. There is no mediastinal or hilar lymphadenopathy on the right. Adrenals: The adrenal glands are normal. Kidneys and ureters: There is mild right hydronephrosis, incompletely imaged. Bones/joints: Bones are unremarkable. Soft tissues: The extrathoracic soft tissues are unremarkable. CT/CT angio chest PE protcl [id number] IMPRESSION: 1. No pulmonary embolism. 2. 4.5 cm left hilar mass and 17 mm lingular pulmonary nodule. Findings are suspicious for malignant neoplasm. Differential diagnosis includes fungal infection. Highly suspicious nodule(s). Consider PET/CT, or tissue sampling.(Reference: Javier) 3. Right hydronephrosis. Consider further evaluation with renal ultrasound or abdomen CT. REFERENCES: Javier Hilario, et al. Guidelines for Management of Incidental Pulmonary Nodules Detected on CT Images: From the Fleischner Society 2017. Radiology. 2017;284(1):228-243. Radiation Dose CTDIVOL = (mGy): DLP = 1224.23 (mGy-cm)
[2020-02-24] MEDS: iohexol 350 mg/mL 100 mL Btl IV (01:41)
[2020-02-24 03:01] LABS: Troponin 5 2HR Delta 0 ABS# (0-10)
[2020-02-24 03:11] LABS: Basophils # 0.1 10^3/uL (0.0-0.1); Basophils % 0.7 %; Eosinophils # 0.1 10^3/uL (0.0-0.8); Eosinophils % 0.7 %; Hematocrit 39.2 % (37.0-47.0); Hemoglobin 11.8 g/dL (11.5-15.3); Lymphocytes % 34.8 %; Mean Corpuscular HGB Conc 30.1 g/dL (30.0-36.0); Mean Corpuscular Hemoglobin 25.7 pg (28.0-34.0); Mean Corpuscular Volume 85.4 fL (81-99); Mean Platelet Volume 10.2 fL (7.4-10.4); Monocytes # 0.5 10^3/uL (0.2-0.9); Monocytes % 5.8 %; Neutrophils # 5.03 10^3/uL (1.8-8.0); Neutrophils % 57.8 %; Nucleated Red Blood Cells % 0 %; Platelet Count 420 10^3/cmm (130-400); Red Blood Count 4.59 10^6/uL (4.1-5.3); Red Cell Distribution Width 14.6 % (12.1-15.1); White Blood Count 8.7 10^3/uL (4.5-13.0)
--- NOTE | 2020-02-24 03:29 | PM.HP ---
Providers/Chief Complaint Primary Care Provider: Juan Barajas DO Chief Complaint: chest pains/ has chf History of Present Illness Shanna Pearce is a 19 year old female who is G2, , recent vaginal delivery 2 months ago came in after experiencing left sided chest pain. Patient is stating that her symptoms started yesterday morning with left-sided shoulder pain, which was sharp stabbing in nature, 6-8/10 intensity, radiating towards her left side of her chest, she did not notice any nausea, vomiting, sputum production, hemoptysis, hematemesis, diaphoresis. Her symptoms are getting worse so she decided to come to the hospital for further evaluation. Patient is denying fevers, night sweats, weight loss, tender lymph nodes, previous history of cancer, proximal muscle weakness symptoms, proptosis, dysphagia, symptoms of hypo-or hyper thyroidism. Diagnosis in the ER revealed high d-dimer, initially she was sinus tachycardic, EKG showed S1Q3T3 pattern, CTA was requested which showed left hilar mass with left-sided pulmonary nodule, patient is still complaining of left shoulder pain and afraid to go home with this recent diagnosis of left hilar mass. She is not septic, leukocyte 8.7, hemoglobin 11.8, normal BMP, saturating well on room air, troponin not significant, I have requested LDH, alpha-fetoprotein and beta-hCG. Review of Systems Const: Denies: fever(s), chills, body aches, change in appetite, fatigue, malaise, night sweats or diaphoresis Eyes: Denies: change in vision ENMT: Denies: throat pain Card: Reports: chest pain; Denies: palpitations, swelling of feet/ankles, lightheadedness, pre-syncope, dyspnea on exertion or orthopnea Resp: Denies: dyspnea GI: Denies: abdominal pain or nausea : Denies: flank pain Musc: Denies: neck pain Skin/Breast: Denies: rash Neuro: Denies: headache(s) Psych: Denies: anxiety Endo: Denies: polyuria Roland/Lymph: Denies: easy bruising All/Imm: Denies: urticaria Medications/Allergies Home Medications Medication Instructions Recorded Confirmed Last Taken Type prenat.vits,pako,bju-rbzo-tyowu 1 tab PO DAILY 11/27/19 01/31/2020 10:00 History ferrous sulfate 325 mg PO BID #0 tab 12/12/19 01/31/20 12/10/19 10:00 Rx Allergies Allergy/AdvReac Type Severity Reaction Status Date / Time azithromycin Allergy Mild Rsah Verified 02/23/20 23:07 [From Zithromax Z-Juan R] ceftriaxone [From Rocephin] Allergy Mild Rash Verified 02/23/20 23:07 PFSH Acute PFSH: Medical History Blood type B- Obesity Surgical History History of tonsillectomy and adenoidectomy (~2013) Family History Mother Hypertension Diabetes Family/Other Diabetes Paternal aunt Heart disease Paternal great uncle Family history of thyroid problem Maternal aunt Social History Smoking and tobacco status: former smoker Quit status (tobacco): has quit using tobacco Year quit tobacco: 2015 Former quit date comment: Smoked for 1 year at age 14 Alcohol intake: never Additional social history: - Tobacco use: former smoker; Smoked for approx 1 year at age 14. Alcohol use: Denies Drug use: Denies Vitals/I&O/Wt Last Vital Signs Temp 98.0 F 02/23/20 23:00 Pulse 74 02/24/20 03:24 Resp 16 02/24/20 03:24 BP 136/69 02/24/20 03:24 Pulse Ox 99 02/24/20 03:24 Weight last 48 hrs Weight 95.436 kg Physical Exam Narrative: EXAM NARRATIVE: Young female currently sitting comfortable in her bed Saturating well on room air She complains of left-sided shoulder pain, stabbing in nature, No active respiratory distress S1, S2 no tachycardia heart failure No adventitious sounds on lung auscultation No signs of hypo-or hyperthyroidism Abdomen soft distended bowel sound present No neurological deficit Awake alert oriented x3 GCS 15 Data : 02/24/20 00:03 02/24/20 00:03 A&P Assessment and plan (1) Hilar mass: Status: Acute (2) Pulmonary nodule: Status: Acute (3) Hydronephrosis, right: Status: Acute Additional A&P Information Left hilar mass with pulmonary nodule History of asthma without acute exacerbation No signs of sepsis, I do not suspect aspergilloma at this point, hilar lymphadenopathy seems to be around blood vessels without any cavitary lesion No B-cell signs such as fever, night sweats or diaphoresis No proximal muscle weakness, signs of myasthenia gravis No signs of hypo-or hyperthyroidism No signs of pure red cell aplasia or autoimmune disease I will check LDH, alpha-fetoprotein and beta-hCG We will keep her n.p.o. for core biopsy, I am not sure whether she will be a good candidate for CT-guided biopsy I do believe due to central location of this hilar lymphadenopathy she would benefit from bronchoscopy DuoNeb every 4 as needed PE ruled out for high d-dimer Right hydronephrosis, creatinine normal, will get renal ultrasound to rule out hydronephrosis, No flank pain Chest pain Most likely etiology is hilar mass, EKG not significant for ischemia or infarctive changes, troponin not significantly high Patient recently had vaginal delivery which tells me that her cardiac contractility is optimum, she did not experience any complications Patient has been having recurrent left-sided chest pain, Full code N.p.o. Analgesia with morphine DVT prophylaxis: SCDs, would avoid for now in case she will go for histopathological diagnosis Attestations Medical Necessity Statement*: Anticipating discharge in less than 48 hours need histopathological diagnosis for hilar mass and currently experiencing recurrent left-sided shoulder and chest pain, Time Spent in Patient Care: (>than 50% of time spent in counselling and/or direct pt care on unit). 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
[2020-02-24 03:47] LABS: HCG, Serum Qual Negative (Negative)
[2020-02-24 04:13] LABS: Lactate Dehydrogenase 185 U/L (135-214)
--- NOTE | 2020-02-24 05:06 | PC.NURSE ---
hat not in bathroom. will put one in there
--- NOTE | 2020-02-24 08:50 | CT_ITS ---
WS: [id number] CT ABDOMEN AND PELVIS NONCONTRAST HISTORY: newly diagnosed hilar mass, evaluate for abdomen involvement TECHNIQUE: Imaging performed through the abdomen and pelvis. Coronal and sagittal reformats are submi tted. All CT scans at [facility] use at least one of these dose optimization techniques: automated exposure control; mA and/or kV adjustment per patient size (includes targeted exams where d ose is matched to clinical indication); or iterative reconstruction. DLP: 1206.52 mGy.cm COMPARISON: 07/22/2017 Lower thorax: Lung bases are clear. Visualized heart is normal. No hiatal hernia. Liver: Normal size liver. No mass or bile duct dilatation. Gallbladder: Normal gallbladder. Pancreas: Normal size and attenuation. Normal pancreatic duct. No pancreatitis or mass. Spleen: Normal size spleen. No interval change since 07/22/2017. Adrenal glands: Normal. No mass. Right kidney: High density contrast in the renal pelvis from excreted IV contrast. No obstruction or mass. Left kidney: High density contrast in the renal pelvis from the recent chest CT angiogram. No obstruc tion or mass. Aorta: Normal abdominal aorta, no aneurysm or atherosclerosis. There are very few small subcentimeter shotty lymph nodes in the retroperitoneum. Very similar to the prior study with no adenopathy. GI tract: Moderate fecal retention. No GI tract obstruction. Normal appendix. Abdominal wall: Negative. No hernia. Pelvis: Uterus is very slightly prominent with prominent endometrium. Probably due to recent postpart um state. There is no free fluid or adnexal mass. No inguinal lymph nodes. Osseous structures: Unremarkable. CT/CT abdomen pelvis wo con [id number] IMPRESSION: 1. Evaluation is limited without IV contrast. 2. No splenomegaly. 3. Small shoddy retroperitoneal lymph nodes. No enlarged lymph nodes. 4. Mildly enlarged uterus with thickening of the endometrium from a recent pos tpartum state.
[2020-02-24 09:57] LABS: SARS Covid-2 Antigen Negative (Negative)
--- NOTE | 2020-02-24 10:29 | PC.CHAP ---
Pastoral Care Encounter/Spiritual Assessment Type of Contact [] Declined anode worker visit [] Patient/Family/Request visit [] Outpatient visit [] Follow-up visit [] Physician referral [] Code/Alert [] Routine visit [] Staff referral [] Actively dying [] Patient sleeping [] Family support [] [] Out of room [] Palliative care [] [x] Receiving care in room [] Pre-surgical visit [] Trauma [] Long length of stay [] ICU visit [] Other: Relational/Emotional Strength [] Patient feels connected with others/family/visitors/staff [] Distress [] Loneliness/isolation [] Abandonment Spirituality of Patient [] Person of Claire [] Attends Anabaptism of their Claire [] Believes in Prayer [] Reads Bible or Samaritan materials [] There are Spiritual issues to be addressed Healthcare Facility Administrator Interventions [] Prayer [] Active listening [] Non-anxious presence [] Spiritual/emotional support [] Crisis/trauma care [] Spiritual counseling [] Bereavement support [] Provided bereavement packet [] Provided Bible/devotional materials [] Provided toy/stuffed animal, coloring book to patient or family member [] Provided Communion [] Anointing/[place] [] Salvation [] Completed spiritual assessment [] Other: Impact on Illness or Injury [] Angry [] Fearful [] Anxious [] Often cries [] Exhaustion [] Unable to work [] Unable to attend hinduism [] Unable to walk/stand [] Unable to read [] Unable to drive [] Unable to eat/drink [] Unable to sleep [] Unable to be with family [] Patient intubated [] Other: Summary Patient was receiving nursing care at the time of the anode worker visit. Referred the patient for a follow up visit by the next anode worker. Patient visit was attempted by Healthcare Facility Administrator Juan Hartley. Time spent with patient 3 minutes
--- NOTE | 2020-02-24 11:58 | PC.NURSE ---
Dr. Valencia rounding with patient at this time. Dr. Valencia is discussing plan of care with patient. Patient will f/u outpatient with Dr. Agrawal, Water Proofer for a Bronchoscopy. Patient will have this test outpatient on . We will obtain a send out COVID test for patient to have procedure. Patient is alert and oriented and agrees with plan. Patient expresses no needs at this time. Will discharge today after PTC test. SHANTHI, YESI
[2020-02-24 12:20] LABS: Lactate Dehydrogenase 140 U/L (135-214)
--- NOTE | 2020-02-24 13:20 | P.DS_ITS ---
Discharge Providers Date of Admission: 02/24/20 03:38 Date of Discharge: February 24, 2020 Attending Provider at Admission: Parvez Carmichael MD Attending Provider at Discharge: Ivette Valencia MD Primary Care Provider: Juan Barajas DO Diagnoses at Discharge Discharge Diagnosis (1) Hilar mass: Status: Acute (2) Pulmonary nodule: Status: Acute Other Information Additional DC diagnoses/information: Shanna Pearce is a 19 year old female who is G2, , recent vaginal delivery 2 months ago came in after experiencing left sided chest pain. Diagnostics in the ER revealed high d-dimer, initially she was sinus tachycardic, EKG showed S1Q3T3 pattern, CTA was requested which showed left hilar mass with left-sided pulmonary nodule. Study was negative for PE. No signs or symptoms of pneumonia. Covid rapid antigen negative. Afebrile. Patient needs pulmonary evaluation and diagnostic work up for newly discovered incidental lung mass of unclear etiology.Since she is otherwise stable, currently pain free, saturating 98-100% on room air, PE ruled out, this was elected to be pursued as outpatient. Appointment has been scheduled with Dr. Agrawal as outaotient for 02/24. She will likely undergo bronchoscopy later this week, COVID PCR sent for pre surgical testing per current protocol. LDH and urine histoplasm antigen sent, pending at time of discharge. Patient agrees with plan. She declined my offer to discuss with her family members, prefers to update them herself. Due to noted hydronpehrosis on CT chest and to evaluate for extent of disease including possibility of malignancy, she underwent CT of the abdomen which did not reveal any mass lesions. Reason for Visit Reason for Visit: chest pains/ has chf Discharge Data Data Completed and Pending: Completed Studies During Hospitalization Category Date Time Status CT abdomen pelvis wo con [id number] Rout ine Cat Scan 02/24/20 08:[address] angio chest PE protcl [id number] Urge nt Cat Scan 02/24/20 01:28 Completed XR chest 1V david ble [id number] Stat Exams 02/23/20 23:20 Completed Pending at discharge Category Date Time Status Basic Metabolic P kay AM LABS Lab 02/25/20 04:00 Ordered COVID [Coronaviru s Lab Test PTC] Ro utine Lab 02/24/20 12:20 Received Complete Blood Co unt w/Auto AM LABS Lab 02/25/20 04:00 Ordered Complete Blood Co unt w/Auto AM LABS Lab 02/26/20 04:00 Ordered Complete Blood Co unt w/Auto AM LABS Lab 02/27/20 04:00 Ordered Histoplasma Quant itative AG Routine Lab 02/24/20 11:50 Ordered Procalcitonin AM LABS Lab 02/25/20 04:00 Ordered Labs from last 24 hours 02/24/20 02/24/20 02/24/20 12:20 09:27 05:20 WBC RBC Hgb Hct MCV MCH MCHC RDW Plt Count MPV Neut % (Auto) Lymph % (Auto) Lyman % (Auto) Eos % (Auto) Baso % (Auto) Neut # (Auto) Lymph # (Auto) Lyman # (Auto) Eos # (Auto) Baso # (Auto) Nucleated RBC % (a uto) Nucleated RBCs # D-Dimer Sodium Potassium Chloride Carbon Dioxide Anion Gap BUN Creatinine GFR Calculation Glucose Calculated Osmolal ity Calcium Total Bilirubin AST ALT Alkaline Phosphata se Lactate Dehydrogen ase 140 Creatine Kinase Troponin T Baselin e Troponin T 120 Min [place] Troponin T NT-Pro-B Natriuret Pep Total Protein Albumin Globulin Tumor Marker AFP HCG, Qual Nasal/Oral COVID-1 9 PCR Pending SARS-CoV-2 Ag (Rap id) Negative 02/24/20 02/24/20 02/24/20 02:23 00:03 00:03 WBC RBC Hgb Hct MCV MCH MCHC RDW Plt Count MPV Neut % (Auto) Lymph % (Auto) Lyman % (Auto) Eos % (Auto) Baso % (Auto) Neut # (Auto) Lymph # (Auto) Lyman # (Auto) Eos # (Auto) Baso # (Auto) Nucleated RBC % (a uto) Nucleated RBCs # D-Dimer Sodium Potassium Chloride Carbon Dioxide Anion Gap BUN Creatinine GFR Calculation Glucose Calculated Osmolal ity Calcium Total Bilirubin AST ALT Alkaline Phosphata se Lactate Dehydrogen ase 185 Creatine Kinase Troponin T Baselin e Troponin T 120 Min [place] 6.00 Delta Troponin T 0 NT-Pro-B Natriuret Pep Total Protein Albumin Globulin Tumor Marker AFP 1.0 HCG, Qual Negative Nasal/Oral COVID-1 9 PCR SARS-CoV-2 Ag (Rap id) 02/24/20 02/24/20 02/24/20 00:03 00:03 00:03 WBC 8.7 RBC 4.59 Hgb 11.8 Hct 39.2 MCV 85.4 MCH 25.7 L MCHC 30.1 RDW 14.6 Plt Count 420 H MPV 10.2 Neut % (Auto) 57.8 Lymph % (Auto) 34.8 Lyman % (Auto) 5.8 Eos % (Auto) 0.7 Baso % (Auto) 0.7 Neut # (Auto) 5.03 Lymph # (Auto) 3.0 Lyman # (Auto) 0.5 Eos # (Auto) 0.1 Baso # (Auto) 0.1 Nucleated RBC % (a uto) 0 Nucleated RBCs # 0.0 D-Dimer Sodium 141 Potassium 4.2 Chloride 107 Carbon Dioxide 24 Anion Gap 14.2 BUN 14 Creatinine 0.7 GFR Calculation 106.7 Glucose 87 Calculated Osmolal ity 292 Calcium 10.0 Total Bilirubin 0.2 AST 18 ALT 18 Alkaline Phosphata se 84 Lactate Dehydrogen ase Creatine Kinase 60 Troponin T Baselin e 6 Troponin T 120 Min [place] Troponin T NT-Pro-B Natriuret Pep 26 Total Protein 6.9 Albumin 4.4 Globulin 2.5 Tumor Marker AFP HCG, Qual Nasal/Oral COVID-1 9 PCR SARS-CoV-2 Ag (Rap id) 02/24/20 00:03 WBC RBC Hgb Hct MCV MCH MCHC RDW Plt Count MPV Neut % (Auto) Lymph % (Auto) Lyman % (Auto) Eos % (Auto) Baso % (Auto) Neut # (Auto) Lymph # (Auto) Lyman # (Auto) Eos # (Auto) Baso # (Auto) Nucleated RBC % (a uto) Nucleated RBCs # D-Dimer 2.02 H Sodium Potassium Chloride Carbon Dioxide Anion Gap BUN Creatinine GFR Calculation Glucose Calculated Osmolal ity Calcium Total Bilirubin AST ALT Alkaline Phosphata se Lactate Dehydrogen ase Creatine Kinase Troponin T Baselin e Troponin T 120 Min [place] Troponin T NT-Pro-B Natriuret Pep Total Protein Albumin Globulin Tumor Marker AFP HCG, Qual Nasal/Oral COVID-1 9 PCR SARS-CoV-2 Ag (Rap id) Vitals: Last Vital Signs Temp 97.8 F 02/24/20 11:44 Pulse 87 02/24/20 11:44 Resp 18 02/24/20 11:44 BP 106/70 02/24/20 11:44 Pulse Ox 99 02/24/20 11:44 Discharge Plan Discharge Patient Disposition: Home Condition: Stable Prescriptions: Continued ferrous sulfate 325 mg (65 mg iron) tablet,delayed release (DR/EC) 325 mg PO BID Qty: 0 RF: 0 Discharge Orders: Discharge Order (Routine); Ordered 02/24/20 Ordered By: Ivette Valencia Referrals: Pavan Agrawal MD [Physician] - 02/25/20 2:00 pm (Call Dr. Agrawal's clinic to get information on how to set up for your telehealth visit. ) Discharge Diet: Usual diet Discharge Activity: Resume usual activity Patient Instructions: Iron Supplements (By mouth), Hydronephrosis (GEN), Pulmonary Nodules (GEN) Discharge Date/Time: 02/24/20 13:53 Discharge Attestations Time Spent in Discharge Care*: greater than 30 min Quality Metrics Clinical Quality Measures During this hospital stay, did patient experience: None Coding Level of Care Code Acute Director Patient Accounting for Lacyg Hudsond Diagnoses Hilar mass R91.8 Pulmonary nodule R91.1
[2020-02-25 22:30] LABS: Coronavirus Lab Test PTC Negative
== END 2020-02-24 13:53 | disposition home or self-care (01) ==
LOC: ER 23:29 → MEDSURG 02-24 03:55
PROVIDERS: Emergency Medicine; Admitting Provider Internal Medicine; PCP Family Medicine; Visit Provider Student in an Organized Health Care Education/Training Program
DX: R91.8 Other nonspecific abnormal finding of lung field (principal); R91.1 Solitary pulmonary nodule; N13.30 Unspecified hydronephrosis; E66.9 Obesity, unspecified; Z87.891 Personal history of nicotine dependence
CPT/HCPCS: 12345; 71045; 71275; 74176; 80053; 82105; 82550; 83615; 83880; 84484; 84703; 85025; 85378; 87426; 87635; 93005; 99283; 99285; G0378; Q9967

== ENCOUNTER 2020-02-28 07:51 | Day surgery (SDC) | payer MEDICAID, SELFPAY ==
[2020-02-27 10:43] VITALS: BMI 37.8
[2020-02-28] VITALS (8 sets, daily range): BP systolic 106–129; BP diastolic 54–95; PULSE 75–99; RESP 16–22; TEMP 36.2–36.8; O2SAT 96–99
[2020-02-28 08:10] LABS: OR HCG Qualitative Urine Negative (Negative)
[2020-02-28] MEDS: sodium chloride 0.9% 1,000 ML 30 ML IV (08:16)
--- NOTE | 2020-02-28 08:58 | ANES.PREANE2 ---
Pre-Anesthetic Assessment Pre-Anesthetic Assessment: Height/Weight: Height 1.59 m Weight 95.254 kg Temp Pulse Resp BP Pulse Ox 98 F 99 18 106/54 99 02/28/20 08:17 02/28/20 08:17 02/28/20 08:17 02/28/20 08:17 02/28/20 08:17 Preop Diagnosis: Left mediastinal mass Proposed Procedure: Operation Date: 02/28/20 09:15 Proposed Procedures p Ebus(Not Applicable) - Pavan Agrawal MD Familial anesthetic complications: None Was Beta Sd taken within 24 hours: N/A Last intake: Intake Last Liquid Date 02/27/20 Last Liquid Time 22:30 Last Solid Date 02/27/20 Last Solid Time 21:00 Social: Social History: No alcohol and No tobacco Exam: Pre-Anes Outpt Exam: alert, oriented x 3, clear to auscultation bilaterally and regular rate & rhythm Airway: Cervical ROM: WNL MP: 3 Dentition: Full Anesthetic Plan: ASA status: 1 Anesthesia: General Risk of > 500 ml blood loss (7ml/kg in children): No Meds/Allergies Current Medications: Current Medications Generic Name Dose Route Start Last Admin Trade Name Freq PRN Reason Stop Dose Admin Sodium Chloride 1,000 mls @ 30 ml s/hr 02/28/20 08:00 02/28/20 08:16 Sodium Chloride 0.9% IV 02/29/20 07:59 30 mls/hr .Q24H ESTHER Administration PFSH Anesthesia PFSH: Medical History (Updated 02/26/20 @ 00:01 by ) Blood type B- Obesity Surgical History History of tonsillectomy and adenoidectomy (~2013) Family History Mother Hypertension Diabetes Family/Other Diabetes Paternal aunt Heart disease Paternal great uncle Family history of thyroid problem Maternal aunt Social History Smoking and tobacco status: former smoker Quit status (tobacco): has quit using tobacco Year quit tobacco: 2015 Former quit date comment: Smoked for 1 year at age 14 Second hand smoke exposure: Yes Alcohol intake: never Lives independently: Yes Household members: significant other and family Housing: House Marital status: Life Partner Current occupational status: employed 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 Alcohol use: Denies Drug use: Denies Data Anesthesia Other Labs: Laboratory Results - last 48 hr 02/28/20 07:54 Urine HCG, Qual Negative Cardiac Studies: No Data to Display
--- NOTE | 2020-02-28 10:16 | W.PM.OPSUD ---
Surgery/Procedure H&P Update DATE OF PROCEDURE: February 28, 2020 DATE H&P PERFORMED: 02/25/20 H&P UPDATE INFORMATION: I have reviewed H&P completed within last 30 days, I have examined patient prior to procedure and No changes to prior documentation PREOP DIAGNOSIS: Left mediastinal mass PLANNED PROCEDURE: Bronchoscopy with inspection of the airway, endobronchial sound guided transbronchial aspiration of lymph nodes, possible endobronchial biopsies. Operation Date: 02/28/20 09:15 Proposed Procedures p Ebus(Not Applicable) - Pavan Agrawal MD
[2020-02-28] MEDS: lidocaine 1% INJ 20 mL XX (10:55)
--- NOTE | 2020-02-28 11:45 | P.OP_ITS ---
Operative Report Date of procedure: February 28, 2020 Pre-op Diagnosis: Left mediastinal mass Post-op diagnosis: same Brief History: This is a 19-year-old female with recently identified left hilar mass coming in for bronchoscopic evaluation. Procedure: Name of the procedure: Bronchoscopy with inspection of the airway, bronchoalveolar lavage, endobronchial ultrasound-guided transbronchial needle aspiration of lymph nodes and control of bleeding. Indication: Left hilar lung mass Anesthesia: General anesthesia. Local anesthesia: The wendy in the right and left mainstem bronchi were ane sthetized with 1% lidocaine, 3 mL. Description of the procedure: The procedure was explained to the patient and the consent was obtained. The patient was brought to the OR. The patient underwent endotracheal intubation for general anesthesia. Following induction of general anesthesia, the bronchoscope was advanced through the ET tube. The lower trachea appeared to be normal. The wendy was sharp. The wendy, the right and left mainstem bronchi are anesthetized with 1% lidocaine. In a systematic manner bilateral bronchial tree was then examined. The bronchoscope was advanced into the left mainstem bronchus. There was no erythema,mucus and areas of cobblestoning. There is no significant narrowing of the left mainstem bronchus the left upper lobe, lingula and left lower lobe bronchi were examined up to the third subsegmental level and no abnormalities were identified. There is no endobronchial lesion, active bleeding or mucous plug. The bronchoscope was then introduced into the right mainstem bronchus. The right upper lobe, right middle lobe and right lower lobe bronchi were examined up to the third subsegmental level and no abnormalities were identified. Bronchoalveolar lavage was performed from the lingular segment. 60 mL of fluid was instilled fluid, fluid return was 35 mL The endobronchial ultrasound was introduced through the ET tube. Left hilar mass with narrowing of the pulmonary artery was noted. Fine-needle aspiration was performed from station 7 and station 10 L. Samples: 1. Bronchoalveolar lavage specimen was sent for cell count and differential, CD4 CD8 ratio, Gram stain and culture, fungal stain and culture, AFB stain and culture. 2. The transbronchial needle aspiration of the aforementioned lymph node groups were sent for cytology and histopathology. Complications: There was no immediate complications. The patient was extubated and brought to the PACU in stable condition.
--- NOTE | 2020-02-28 12:20 | ANE.PACU2 ---
Inpatient post-anesthesia follow up: Airway intact: Yes Vital signs: Temperature 98.2 F Pulse Rate 82 Respiratory Rate 18 Blood Pressure 121/95 Pulse Oximetry 97 Oxygen Delivery Me thod Room Air Oxygen Flow Rate Fraction of Inspir ed Oxygen Hydration adequate: Yes Nausea and vomiting: No Pain level: 1 Mental status: Baseline
--- NOTE | 2020-02-28 12:25 | PTH.EBUS ---
Endobronchial Ultrasound Specimen(s): Lymph node, hilar, station 10 L, fine-needle aspiration biopsy Gross: The specimen is received fresh in a container and consists of multiple cores. 2 Diff-Quik slides are prepared after touch preps and the remaining tissue is procured in formalin. The cores measure 1 x 0.2 x 0.2 cm. Preliminary Impression: Lymph node, hilar, station 10 L, fine-needle aspiration biopsy: ?Large pleomorphic atypical cells in clusters in a background of ciliated bronchial epithelial cells and lymphoid tissue, highly suspicious for a neoplastic process. ?Tissue was procured for additional H&E and ancillary studies. - Specimen Information Pathologist: Laney Trujillo Date: 02/28/20 Specimen reported at what time: 11:30 - Clinician Specimen collection time: 11:15 Clinician reported to: Pavan Agrawal
[2020-02-28 13:10] LABS: Apprearance, Bronch Wash Bloody (CLEAR); Color, Bronc Wash Slight Pink; Total Cells Counted Bronch 300
[2020-02-28 13:12] LABS: PATH Referral Yes
[2020-04-01 11:03] LABS: Miscellaneous Test See Scanned Lab Rpt
== END 2020-02-28 13:01 | disposition home or self-care (01) ==
PROVIDERS: PCP Family Medicine; Visit Provider Internal Medicine Critical Care Medicine
PROC: BB4BZZZ Ultrasonography of Pleura (ICD-10-PCS; principal; 2020-02-28 09:15)
DX: R91.8 Other nonspecific abnormal finding of lung field (principal); E66.9 Obesity, unspecified; Z68.37 Body mass index [BMI] 37.0-37.9, adult; Z82.49 Family history of ischemic heart disease and other diseases of the circulatory system; Z83.3 Family history of diabetes mellitus; Z87.891 Personal history of nicotine dependence
CPT/HCPCS: 12345; 31625; 31627; 80500; 81025; 84703; 87015; 87070; 87102; 87116; 87205; 87206; 87801; 88305; 89050; 96360; 96361; J1100; J2405; J2704; J2710; J3010; J3490; J7030

== ENCOUNTER 2020-03-09 13:38 | Outpatient (CLI) | payer MEDICAID, SELFPAY ==
[2020-03-09 14:53] LABS: Calcium 9.2 mg/dL (8.5-10.5); Parathyroid Hormone 47.3 pg/mL (15-65)
[2020-03-09 16:01] LABS: 25 Hydroxy Vitamin D 23 ng/mL (30-100)
[2020-03-10 13:13] LABS: Angiotensin Converting Enzyme 36 U/L (9-67)
== END 2020-03-09 13:39 | disposition home or self-care (01) ==
LOC: LAB 13:41
PROVIDERS: PCP Family Medicine; Visit Provider Internal Medicine Critical Care Medicine
DX: D86.9 Sarcoidosis, unspecified (principal)
CPT/HCPCS: 36415; 82164; 82306; 82310; 82652; 83970